=== PATIENT | male | born 1980 ===

== ENCOUNTER 2017-02-27 18:39 | Emergency (ER) | payer OTHER ==
[2017-02-27 19:16] VITALS: TEMP 98
--- NOTE | 2017-02-27 19:22 | C.PDOC ---
History Of Present Illness 36 t/o male c/o cold symptoms for a week- cough, bilateral ear pain, sore throat , not getting better. +fever last week. decreased hearing from both ears. Time Seen by Provider: 02/27/17 19:11 Chief Complaint (Nursing): Cough, Cold, Congestion History Per: Patient History/Exam Limitations: no limitations Onset/Duration Of Symptoms: Days (7) Current Symptoms Are (Timing): Still Present Location Of Pain: Ear(s), Throat, Sinus/es Sick Contacts (Context): None Associated Symptoms: Fever, Sore Throat, Cough, Sputum, Sinus Drainage, Nasal Congestion. denies: Vomiting, Diarrhea Ear Symptoms: Bilateral: Ear Pain, Ear Fullness, Decreased Hearing Severity: Moderate Past Medical History Reviewed: Historical Data, Nursing Documentation, Vital Signs Vital Signs: Last Vital Signs Temp 98 F 02/27/17 19:13 Pulse 88 02/27/17 19:13 Resp 18 02/27/17 19:13 BP 124/88 02/27/17 19:13 Pulse Ox 100 02/27/17 19:13 - Medical History PMH: Anxiety Family History: States: Unknown Family Hx - Social History Hx Alcohol Use: No Hx Substance Use: No - Immunization History Hx Tetanus Toxoid Vaccination: No Hx Influenza Vaccination: No Hx Pneumococcal Vaccination: No Review Of Systems Eyes: Negative for: Pain ENT: Positive for: Ear Pain, Nose Discharge, Nose Congestion, Throat Pain. Negative for: Ear Discharge Cardiovascular: Negative for: Chest Pain Respiratory: Positive for: Cough, Sputum. Negative for: Wheezing Gastrointestinal: Negative for: Abdominal Pain Skin: Negative for: Rash Neurological: Negative for: Weakness, Numbness Physical Exam - Physical Exam Appears: Non-toxic, No Acute Distress Skin: Normal Color, Warm, Dry Head: Atraumatic, Normacephalic Eye(s): bilateral: Normal Inspection Ear(s): Bilateral: TM Erythema (right worse than left) Nose: No Discharge Oral Mucosa: Moist Tongue: Normal Appearing Lips: Normal Appearing Throat: No Erythema, No Exudate Neck: Supple Cardiovascular: Rhythm Regular, No Murmur Respiratory: No Rales, No Rhonchi, No Wheezing ED Course And Treatment O2 Sat by Pulse Oximetry: 100 Medical Decision Making Medical Decision Making: pt with cold symptoms and bilateral ear pain with both tm erythematous, will tx for otitis media. Disposition Counseled Patient/Family Regarding: Diagnosis, Need For Followup, Rx Given - Disposition Referrals: [facility] [Outside] Disposition: HOME/ ROUTINE Disposition Time: 19:24 Condition: STABLE Additional Instructions: Please take antibiotics as prescribed. Recommend decongestant to help decrease full sensation in ears. Follow up in medical clinic in a few days. Prescriptions: Amoxicillin [Amoxil 500 mg Cap] 500 mg PO TID #21 cap Instructions: Otitis Media (ED) Forms: [facility] (Italian), General Discharge Instructions - Clinical Impression Clinical Impression: Otitis media, Upper respiratory infection
[2017-02-27 19:50] VITALS: BP 118/78; PULSE 74; RESP 16
[2017-02-28 05:44] VITALS: O2SAT 100
== END 2017-02-27 19:49 | disposition home or self-care (01) ==
LOC: C.ER 18:39
DX: J06.9 Acute upper respiratory infection, unspecified (principal); H66.90 Otitis media, unspecified, unspecified ear

== ENCOUNTER 2017-03-05 14:48 | Emergency (ER) | payer OTHER ==
[2017-03-05 15:02] VITALS: BP 118/75; PULSE 90; TEMP 97.8; O2SAT 98
[2017-03-05 16:24] VITALS: RESP 20
--- NOTE | 2017-03-05 16:47 | C.PDOC ---
History Of Present Illness 36 years old male presents to ED with complaints of ear infection and states that currently he cannot hear at all. Patient states he took amoxicillin for about a week as advised by his PCP with no relief. Patient denies fever, nausea , or vomiting. Chief Complaint (Nursing): ENT Problem History Per: Patient History/Exam Limitations: None Onset/Duration Of Symptoms: Days (7) Current Symptoms Are (Timing): Worse Quality (Ear): Other (Cannot hear) Quality (Mouth/Throat): denies: Tenderness, Swelling, Redness, Drainage Symptoms Have Been: Continuous Severity: Moderate Pain Scale Rating Of: 5 Anticoagulant/Antiplatlet Use?: Unknown Recent Aspirin Use: Unknown Past Medical History Reviewed: Historical Data, Nursing Documentation, Vital Signs Vital Signs: Last Vital Signs Temp 97.8 F 03/05/17 14:59 Pulse 90 03/05/17 14:59 Resp 20 03/05/17 16:23 BP 118/75 03/05/17 14:59 Pulse Ox 98 03/05/17 17:01 - Medical History PMH: Anxiety Family History: States: No Known Family Hx - Social History Hx Alcohol Use: No Hx Substance Use: No - Immunization History Hx Tetanus Toxoid Vaccination: No Hx Influenza Vaccination: No Hx Pneumococcal Vaccination: No Review Of Systems Constitutional: Negative for: Fever, Chills ENT: Positive for: Ear Pain. Negative for: Ear Discharge, Mouth Pain, Mouth Swelling, Throat Pain, Throat Swelling Gastrointestinal: Negative for: Nausea, Vomiting, Diarrhea Skin: Negative for: Rash Neurological: Negative for: Weakness, Numbness, Change in Speech, Altered Mental Status Psych: Negative for: Depression, Suicidal ideation Physical Exam - Physical Exam Appears: Non-toxic, Other (Awake and alert) Skin: Normal Color, Warm, Dry Eye(s): bilateral: Normal Inspection Ear(s): Left: Other (Pus collection behind right eardrum and heavy exudate and inflammation to left auditory canal ), Right: Other Neurological/Psych: Oriented x3, Normal Speech, Normal Cognition ED Course And Treatment O2 Sat by Pulse Oximetry: 98 (Room air ) Pulse Ox Interpretation: Normal Medical Decision Making Medical Decision Making: Advised cortisporin ear drops and referred him to EMT. Disposition - Disposition Referrals: Chai Randall MD [Staff Provider] - Disposition: HOME/ ROUTINE Disposition Time: 19:05 Condition: GOOD Prescriptions: Amoxicillin/Clavulanate [Augmentin 875 MG-125 MG] 1 tab PO BID #20 tab Neomycin/Polymyxin/Hydrocortis [Cortisporin Otic Susp] 2 drop QID #1 bottle Instructions: Otitis Externa (ED), Otitis Media (ED) Forms: [facility] [facility] (French) Print Language: MOLDOVAN - Clinical Impression Clinical Impression: Upper respiratory infection - Scribe Statement The provider has reviewed the documentation as recorded by the Stephibanibal Montes All medical record entries made by the Stephibanibal were at my direction and personally dictated by me. I have reviewed the chart and agree that the record accurately reflects my personal performance of the history, physical exam, medical decision making, and the department course for this patient. I have also personally directed, reviewed, and agree with the discharge instructions and disposition.
== END 2017-03-05 16:23 | disposition home or self-care (01) ==
LOC: C.ER 14:48
DX: J06.9 Acute upper respiratory infection, unspecified (principal)